=== PATIENT | female | born 2000 | race Caucasian/White ===

== ENCOUNTER 2023-02-10 06:17 | Day surgery (SDC) | payer MEDICAID ==
[~2023-02-10] VITALS: Ht 165.1 cm; Wt 42.4 kg
[2023-02-10] MEDS ORDERED: MEPERIDINE 50 MG/ML VIAL ONE (07:02)
[2023-02-10] MEDS ORDERED: MIDAZOLAM HCL 5 MG/5 ML VIAL ONE (07:03)
[2023-02-10 07:20] LABS: HCG,QUAL RESULT NEGATIVE (NEGATIVE)
[2023-02-10 10:59] VITALS: BP_SYST 93
== END 2023-02-10 10:05 | disposition home or self-care (01) ==
LOC: SDS 06:17 → SMU 06:18 → SDS 10:05
PROVIDERS: ATTEND Internal Medicine Gastroenterology
DX: R63.4 Abnormal weight loss (principal); R62.7 Adult failure to thrive; K29.50 Unspecified chronic gastritis without bleeding; K29.80 Duodenitis without bleeding; K64.9 Unspecified hemorrhoids; F41.9 Anxiety disorder, unspecified; F32.A Depression, unspecified; Z79.899 Other long term (current) drug therapy
CPT/HCPCS: 45378; 43239; 87081; 84703; 36415; 88305; 88312; 88313; 99152; 99153; G0378; J2250; J2175